=== PATIENT | male | born 2000 | race Caucasian/White ===

== ENCOUNTER → 2019-06-26 14:39 | Outpatient (BNVA) | payer SELFPAY | PROVIDERS: Visit Provider Specialist | DX: G43.011 Migraine without aura, intractable, with status migrainosus (principal); R56.9 Unspecified convulsions; Z87.891 Personal history of nicotine dependence | CPT/HCPCS: 99214 ==

== ENCOUNTER → 2019-07-01 07:51 | Outpatient (BNVA) | payer SELFPAY | PROVIDERS: Visit Provider Specialist | DX: G40.909 Epilepsy, unspecified, not intractable, without status epilepticus (principal) | CPT/HCPCS: 36415; 95816 ==

== ENCOUNTER → 2019-10-07 13:05 | Outpatient (BNVA) | payer SELFPAY | PROVIDERS: PCP Family Medicine; Visit Provider Specialist | DX: G43.711 Chronic migraine without aura, intractable, with status migrainosus (principal); K76.0 Fatty (change of) liver, not elsewhere classified; Z87.891 Personal history of nicotine dependence | CPT/HCPCS: 99213 ==

== ENCOUNTER 2019-12-23 19:19 | Emergency (ER) | payer SELFPAY ==
[2019-12-23 19:28] VITALS: BP 131/76; PULSE 79; RESP 18; TEMP 37.1; O2SAT 98; BMI 30.7
[2019-12-23 19:59] LABS: Basophils % 0.6 %; Eosinophils # 0.1 10^3/uL (0.0-0.8); Eosinophils % 1.2 %; Hematocrit 46.3 % (42.0-52.0); Hemoglobin 15.1 g/dL (11.7-16.6); Lymphocytes # 2.3 10^3/uL (0.8-4.8); Mean Corpuscular HGB Conc 32.6 g/dL (30.0-36.0); Mean Corpuscular Hemoglobin 29.8 pg (28.0-34.0); Mean Corpuscular Volume 91.5 fL (80-94); Mean Platelet Volume 12.3 fL (7.4-10.4); Monocytes # 0.3 10^3/uL (0.2-0.9); Monocytes % 5.1 %; Neutrophils # 3.74 10^3/uL (1.8-7.7); Neutrophils % 57.8 %; Nucleated Red Blood Cells % 0 %; Platelet Count 186 10^3/cmm (130-400); Red Blood Count 5.06 10^6/uL (4.1-5.3); Red Cell Distribution Width 12.6 % (12.1-15.1); White Blood Count 6.5 10^3/uL (4.0-10.0)
[2019-12-23 20:05] LABS: INR 0.93 (0.8-1.2)
[2019-12-23 20:29] LABS: Alanine Aminotransferase 52 U/L (0-41); Albumin Level 5.1 g/dL (3.5-5.2); Alkaline Phosphatase 62 IU/L (40-130); Anion Gap 15.7 (5-19); Aspartate Amino Transferase 33 U/L (0-40); Blood Urea Nitrogen 10 mg/dL (6-20); Calcium 9.7 mg/dL (8.5-10.5); Carbon Dioxide 29 mmol/L (22-29); Chloride 102 mmol/L (98-107); Globulin 2.2 g/dL (1.3-4.6); Glomerular Filtration Rate 142.4 mL/min (90-130); Glucose 116 mg/dL (65-115); Lipase 25 U/L (13-60); Osmolality Calculated 293 mOsm/kg (285-295); Potassium 3.7 mmol/L (3.5-5.1); Sodium 143 mmol/L (136-145); Total Bilirubin 0.5 mg/dL (0.15-1.2); Total Protein 7.3 g/dL (6.6-8.7)
[2019-12-23 21:29] VITALS: BP 132/73; PULSE 80; RESP 16
--- NOTE | 2019-12-23 21:45 | W.ED.NAVMDI ---
HPI - Nausea/Vomiting/Diarrhea General: Chief complaint: Abdominal Pain Stated complaint: vomitted blood Time Seen by Provider: 12/23/19 21:19 Source: patient Mode of arrival: ambulatory Limitations: no limitations History of Present Illness: HPI Narrative: Patient is a 19-year-old male presents to ED today with complaints of one episode of vomiting that happened around 3 AM this morning. Patient tells me he had ate dinner around 9 PM and around 3 in the morning he woke up and felt nauseous and had one episode of vomiting. The significant other in the room seems overly concerned stating the vomit had tissue and blood in it . She shows me pictures of the vomit on her phone. Patient states after the episode of vomiting he felt fine and went back to bed. Patient states when he awoke he again felt normal and has continued to feel normal throughout the day. Significant other apparently contacted a medical hotline and was concerned it could be related to his fatty liver and a sign of liver disease so was told to come to the emergency department. Patient is not having any abdominal pain currently. MD elicited complaint: nausea and vomiting Onset (ago): hour(s) Associated nausea: Yes Associated abdominal pain: No Location of pain: None Exacerbating factors: none Relieving factors: none Associated symtoms: Reports no associated symptoms and nausea; Denies chest pain Review of Systems Const: Denies: fever(s) or chills Card: Denies: chest pain Resp: Denies: dyspnea GI: Reports: nausea and vomiting (x 1); Denies: abdominal pain, diarrhea, change in bowel habits, pain on defecation, change in stool character, hematochezia or melena Musc: Denies: back pain [facility] ED PFSH: Medical History (Updated 12/23/19 @ 21:53 by MELLISA Bermeo) Problems related to lack of adequate sleep Social anxiety disorder Family History Other CAD (coronary artery disease) Diabetes Hypertension Denies family history of Stroke Social History Smoking and tobacco status: former smoker Quit status (tobacco): has quit using tobacco Year quit tobacco: 2017 Alcohol intake: current Alcohol intake frequency: holidays/special occasions only Current gender identity: Male Physical Exam Const: COMMON NORMALS: no acute distress, average body habitus, patient oriented x3, no limitations, healthy appearing, alert and well nourished GI: COMMON NORMALS: Normal to inspection, nondistended, normoactive bowel sounds present, Soft to palpation, non-tender, No hepatosplenomegaly present and no masses PALPATION: Yes Soft to palpation and Yes No hepatosplenomegaly present Neuro: COMMON NORMALS: patient oriented x3 SENSORIUM/ORIENTATION: Yes alert Course Vital Signs: Vital signs: Vital Signs Temperature 98.7 F 12/23/19 19:28 Pulse Rate 80 12/23/19 21:29 Respiratory Rate 16 12/23/19 21:29 Blood Pressure 132/73 12/23/19 21:29 Pulse Oximetry 98 12/23/19 19:28 MDM - Nausea/Vomiting/Diarrhea MDM Narrative: Medical decision making narrative: Patient has absolutely no abdominal tenderness at this time. There is nothing to suggest that patient has any form of liver disease apart from his history of a fatty liver. Patient has not had any further episodes of vomiting other than the one episode at 3 AM this morning. His labs are non-concerning at this time. Patient is stable to be discharged and follow-up with primary care. Lab Data: Labs: Lab Results 12/23/19 12/23/19 12/23/19 Range/Units 19:48 19:48 19:48 WBC 6.5 (4.0-10.0) 10^3/ uL RBC 5.06 (4.1-5.3) 10^6/u L Hgb 15.1 (11.7-16.6) g/dL Hct 46.3 (42.0-52.0) % MCV 91.5 (80-94) fL MCH 29.8 (28.0-34.0) pg MCHC 32.6 (30.0-36.0) g/dL RDW 12.6 (12.1-15.1) % Plt Count 186 (130-400) 10^3/c mm MPV 12.3 H (7.4-10.4) fL Neut % (Auto) 57.8 % Lymph % (Auto) 35.0 % [place]ory % (Auto) 5.1 % Eos % (Auto) 1.2 % Baso % (Auto) 0.6 % Neut # (Auto) 3.74 (1.8-7.7) 10^3/u L Lymph # (Auto) 2.3 (0.8-4.8) 10^3/u L [place] # (Auto) 0.3 (0.2-0.9) 10^3/u L Eos # (Auto) 0.1 (0.0-0.8) 10^3/u L Baso # (Auto) 0.0 (0.0-0.1) 10^3/u L Nucleated RBC % (a uto) 0 % Nucleated RBCs # 0.0 /100WBC PT 12.70 (10.5-13.3) SECO NDS INR 0.93 (0.8-1.2) Sodium 143 (136-145) mmol/L Potassium 3.7 (3.5-5.1) mmol/L Chloride 102 (98-107) mmol/L Carbon Dioxide 29 (22-29) mmol/L Anion Gap 15.7 (5-19) BUN 10 (6-20) mg/dL Creatinine 0.7 (0.7-1.2) mg/dL GFR Calculation 142.4 H (90-130) mL/min Glucose 116 H (65-115) mg/dL Calculated Osmolal ity 293 (285-295) mOsm/k g Calcium 9.7 (8.5-10.5) mg/dL Total Bilirubin 0.5 (0.15-1.2) mg/dL AST 33 (0-40) U/L ALT 52 H (0-41) U/L Alkaline Phosphata se 62 (40-130) IU/L Total Protein 7.3 (6.6-8.7) g/dL Albumin 5.1 (3.5-5.2) g/dL Globulin 2.2 (1.3-4.6) g/dL Lipase 25 (13-60) U/L Discharge Plan Discharge Patient Disposition: Home Clinical Impression: Vomiting in adult Condition: Stable Prescriptions: No Action trazodone 50 mg tablet 50 mg PO .qhs 30 Days Qty: 30 RF: 3 milk thistle 500 mg capsule 500 mg PO QDAY RF: 0 Effexor XR 150 mg capsule,extended release 24hr 150 mg PO DAILY RF: 0 Discharge Orders: Discharge Order (Routine); Ordered 12/23/19 Ordered By: Carline Bergeron Patient Instructions: Acute Nausea and Vomiting (ED), Vomiting - Adult Coding Level of Care Code ED Drier Take Off Tender for June Zarco
[2019-12-23 22:23] VITALS: BP 139/84; PULSE 88; RESP 16; TEMP 36.6
--- NOTE | 2020-01-01 09:00 | DCPLANNER ---
manager of distribution had message to speak with patient about getting a primary care physician. manager of distribution called patient unable to speak with patient at this time a message was left for patient.
== END 2019-12-23 22:25 | disposition home or self-care (01) ==
PROVIDERS: Emergency Medicine; Emergency Provider Physician Assistant
DX: R11.10 Vomiting, unspecified (principal); Z87.891 Personal history of nicotine dependence
CPT/HCPCS: 12345; 36415; 80053; 83690; 85025; 85610; 99281; 99282

== ENCOUNTER → 2020-02-19 13:04 | Outpatient (BNVA) | payer SELFPAY | PROVIDERS: Visit Provider Specialist | DX: G40.909 Epilepsy, unspecified, not intractable, without status epilepticus (principal); G43.711 Chronic migraine without aura, intractable, with status migrainosus; K76.0 Fatty (change of) liver, not elsewhere classified; F40.10 Social phobia, unspecified | CPT/HCPCS: 99213 ==

== ENCOUNTER → 2020-06-30 11:40 | Outpatient (BNVA) | payer SELFPAY | PROVIDERS: PCP Nurse Practitioner Family; Visit Provider Specialist | DX: G43.711 Chronic migraine without aura, intractable, with status migrainosus (principal); F40.10 Social phobia, unspecified; Z87.891 Personal history of nicotine dependence | CPT/HCPCS: 99213 ==

== ENCOUNTER 2021-07-02 18:53 | Emergency (ER) | payer OTHER, SELFPAY ==
--- NOTE | 2021-07-02 18:58 | XRR_ITS ---
PROCEDURE INFORMATION: Exam: XR Right Knee Exam date and time: 07/02/2021 6:58 PM Age: 21 years old Clinical indication: Injury or trauma; Fall; Sprain or strain; Patella or knee; Right; Injury date: 07/02/2021 TECHNIQUE: Imaging protocol: XR Right knee. Views: 3 views. COMPARISON: No relevant prior studies available. FINDINGS: Bones/joints: Normal. Soft tissues: Normal. XR/XR knee RT 3V* [id number] IMPRESSION: No acute findings.
[2021-07-02 19:40] VITALS: BP 123/70; PULSE 75; RESP 16; TEMP 37.2; O2SAT 98; BMI 33.0
--- NOTE | 2021-07-02 19:57 | W.ED.EXTPRO ---
HPI - Extremity Problem General: Chief complaint: Extremity Injury, Lower Stated complaint: R knee injury Time Seen by Provider: 07/02/21 19:54 History of Present Illness: Patient is a 21-year-old male comes to the ED with right knee injury. Injury occurred while patient was at work. Patient says earlier today he was carrying a mattress and stepped into a ditch. During that he twisted his right knee. He now has pain and swelling in right knee. He can partially bear weight on the right leg but has to limp. Associated symptoms: Deny chest pain, fever(s) or rash Review of Systems Const: Denies: fever(s), chills or fatigue Eyes: Denies: change in vision or eye discomfort ENMT: Denies: throat pain, odynophagia, nasal discharge or nasal congestion Card: Denies: chest pain, palpitations, edema, swelling of feet/ankles, dyspnea on exertion or orthopnea Resp: Denies: dyspnea, productive cough or non-productive cough GI: Denies: abdominal pain, nausea, vomiting, diarrhea, constipation or hematochezia : Denies: flank pain, difficulty urinating, dysuria or hematuria Musc: Reports: extremity pain (right knee) and extremity swelling (right knee); Denies: neck pain or back pain Skin/Breast: Denies: rash or new lesions Neuro: Denies: headache(s), numbness in extremities or weakness in extremities PFSH ED PFSH: Medical History Problems related to lack of adequate sleep Social anxiety disorder Family History Other CAD (coronary artery disease) Diabetes Hypertension Denies family history of Stroke Social History Smoking and tobacco status: never smoked Quit status (tobacco): has quit using tobacco Year quit tobacco: 2017 Alcohol intake: current Alcohol intake frequency: holidays/special occasions only Current gender identity: Male Physical Exam Const: COMMON NORMALS: no acute distress, patient oriented x3, healthy appearing and alert GENERAL APPEARANCE: cooperative and comfortable HENMT: COMMON NORMALS: normocephalic HEAD & SCALP: normocephalic MOUTH: Normal oral and palatal mucosa present THROAT: posterior oropharynx normal and uvula midline Eye: COMMON NORMALS: Equal, round and reactive pupils present GENERAL EYE: appearance normal, both eyes and all related structures PUPIL: Yes Equal, round and reactive pupils present Neck/C-Spine: COMMON NORMALS: supple GENERAL: Yes normal visual inspection Resp: COMMON NORMALS: normal respiratory effort, No retractions, No use of accessory muscles and clear to auscultation bilaterally AUSCULTATION: clear to auscultation bilaterally Cardio: COMMON NORMALS: regular rate, regular rhythm, S1 normal heart sound present, S2 normal heart sound present, No gallops present (Cardio), No clicks present (Cardio), No murmurs present (Cardio) and Peripheral pulses 2+ throughout RATE: regular rate RHYTHM: regular rhythm HEART SOUNDS: S1 normal heart sound present and S2 normal heart sound present PERIPHERAL PULSES: Peripheral pulses 2+ throughout GI: COMMON NORMALS: Normal to inspection, nondistended, normoactive bowel sounds present, Soft to palpation, non-tender and no masses PALPATION: Yes Soft to palpation : COMMON NORMALS: Yes no CVA tenderness BLADDER/KIDNEY EXAM: Yes no CVA tenderness Back/Pelvis: COMMON NORMALS: no CVA tenderness Extremity: RIGHT LOWER EXTREMITY: Yes knee joint Right knee: Yes inspection (Mild swelling noted.), Yes palpation (Tenderness to palpation of superior, medial,lateral aspect of knee.), Yes ROM (Pain with range of motion.), Yes neurovascular exam (Intact) and Yes other (Patient limps with minimal weightbearing on right leg.) Neuro: COMMON NORMALS: patient oriented x3 and moves all extremities SENSORIUM/ORIENTATION: Yes alert Skin: GENERAL SKIN EXAM: dry skin Course Vital Signs: Vital signs: Vital Signs Temperature 99 F 07/02/21 19:40 Pulse Rate 68 07/02/21 20:21 Respiratory Rate 16 07/02/21 20:21 Blood Pressure 131/88 07/02/21 20:21 Pulse Oximetry 98 07/02/21 20:21 MDM - Extremity (Nontraumatic) Medical Decision Making Patient is a 21-year-old male comes to the ED with right knee injury. Vital stable. Exam shows a healthy 21-year-old male with some right knee swelling and tenderness to palpation. Neurovascular intact. X-ray of right knee showed no acute fractures or findings. Patient was put in a knee immobilizer and discharged home. He was told to follow-up with his PCP within the next week for reevaluation. Return to ED precautions given. Patient understood and agreed with plan. Lab Data Radiology Impressions Knee X-Ray 07/02/21 18:58 IMPRESSION: No acute findings. Discharge Plan Discharge Patient Disposition: Home Clinical Impression: Injury of knee, right Qualifiers: Encounter type: initial encounter Qualified Code(s): S89.91XA - Unspecified injury of right lower leg, initial encounter Condition: Stable Prescriptions: No Action meloxicam 15 mg tablet 15 mg PO DAILY Qty: 30 6RF venlafaxine [Effexor XR] 150 mg capsule,extended release 24hr 150 mg PO DAILY Qty: 90 3RF Rx Instructions: MUST HAVE APPOINTMENT FOR FUTURE REFILLS trazodone 50 mg tablet 25 mg PO .qhs 0RF buspirone 10 mg tablet 10 mg PO BID 30 Days Qty: 60 3RF Discharge Orders: Discharge ED (Routine); Ordered 07/02/21 Ordered By: Dean Cadet Referrals: Hua Louie MD [Primary Care Provider] - Discharge Diet: Regular Discharge Activity: Limit activity as instructed and Use walker/crutches as instructed Patient Instructions: Swollen Knee Joint (ED), Knee Pain (ED), Knee Immobilizer (ED) Activity Restrictions/Additional Instructions: Follow-up with medical provider within the next 5 days for reevaluation and to be cleared for work. Wear knee immobilizer and limit weightbearing for the next couple days. Use your cane at home to help with ambulation. Rest ice and elevate right knee. Take your previously prescribed meloxicam for pain. Return to the ER or your medical provider if condition worsens. Please read and understand discharge instructions. Thank you for choosing [facility] for your healthcare needs today. Please realize this is an emergency room and that we are providing you with a medical screening exam and this may not be complete and all inclusive of all the testing and or work up that you may need to determine your ailment or severity of your illness. It is very important that you follow up as instructed or that you return to the Emergency Department should you have concerns or if your condition changes or worsens in any way. Stand Alone Forms: Work/School Release Coding Level of Care Code ED Makeup Instructor for June Fwkarlo Exam Comprehensive
[2021-07-02 20:18] VITALS: PULSE 75
[2021-07-02 20:21] VITALS: BP 131/88; PULSE 68; RESP 16; O2SAT 98
--- NOTE | 2021-07-02 20:23 | PC.NURSE ---
Knee immobilizer provided at this time.
== END 2021-07-02 20:23 | disposition home or self-care (01) ==
PROVIDERS: Emergency Provider Physician Assistant; PCP Internal Medicine
DX: S89.91XA Unspecified injury of right lower leg, initial encounter (principal); Z87.891 Personal history of nicotine dependence; X50.1XXA Overexertion from prolonged static or awkward postures, initial encounter
CPT/HCPCS: 73562; 99283

== ENCOUNTER 2022-01-26 14:05 | Outpatient (CLI) | payer BC, SELFPAY ==
[2022-01-26 15:01] LABS: Basophils # 0.1 10^3/uL (0.0-0.1); Eosinophils # 0.1 10^3/uL (0.0-0.8); Eosinophils % 2.4 %; Hematocrit 47.7 % (42.0-52.0); Hemoglobin 16.2 g/dL (11.7-16.6); Lymphocytes # 2.2 10^3/uL (0.8-4.8); Lymphocytes % 37.6 %; Mean Corpuscular Hemoglobin 30.1 pg (28.0-34.0); Mean Corpuscular Volume 88.7 fl (80-94); Mean Platelet Volume 11.7 fL (7.4-10.4); Monocytes # 0.5 10^3/uL (0.2-0.9); Monocytes % 8.9 %; Neutrophils # 2.85 10^3/uL (1.8-7.7); Neutrophils % 49.9 %; Nucleated Red Blood Cells % 0 %; Platelet Count 223 10^3/cmm (130-400); Red Blood Count 5.38 10^6/uL (4.1-5.3); Red Cell Distribution Width 12.5 % (12.1-15.1); White Blood Count 5.7 10^3/uL (4.0-10.0)
[2022-01-26 15:06] LABS: Erythrocyte Sedimentation Rate 1 mm/hr (0-10)
[2022-01-26 15:31] LABS: Thyroid Stimulating Hormone 1.45 uIU/mL (0.27-4.20)
[2022-01-27 12:57] LABS: Cyclic Citrullinated Peptide <16 UNITS
== END 2022-01-26 14:06 | disposition home or self-care (01) ==
PROVIDERS: PCP Internal Medicine; Visit Provider Internal Medicine
DX: M13.0 Polyarthritis, unspecified (principal)
CPT/HCPCS: 84443; 85025; 85651; 86140; 86200; 86431

== ENCOUNTER → 2022-08-12 10:55 | Outpatient (BNVA) | payer OTHER, SELFPAY | PROVIDERS: PCP Family Medicine; Visit Provider Nurse Practitioner | DX: Z79.899 Other long term (current) drug therapy (principal) | CPT/HCPCS: 80061; 83036 ==

== ENCOUNTER → 2023-03-07 10:23 | Outpatient (BNVA) | payer MEDICAID, SELFPAY | PROVIDERS: PCP Family Medicine; Visit Provider Internal Medicine Rheumatology | DX: Z79.899 Other long term (current) drug therapy (principal); M19.90 Unspecified osteoarthritis, unspecified site; Z11.1 Encounter for screening for respiratory tuberculosis | CPT/HCPCS: 36415; 73130; 73562; 73630; 80076; 82565; 83520; 85025; 85651; 86140; 86480; 86704; 86803; 86812; 87340 ==

== ENCOUNTER 2023-05-09 08:58 | Outpatient (CLI) | payer MEDICAID, SELFPAY ==
--- NOTE | 2023-05-09 09:15 | US_ITS ---
WS: [id number] RIGHT UPPER QUADRANT ULTRASOUND HISTORY: R79.89 - Other specified abnormal findings of blood chemi... COMPARISON: 02/14/2019 Liver: 13.4 cm in length. Normal size liver with mild hepatic steatosis. There are focal areas of spa ring and hepatic steatosis. Portal Vein: Normal hepatopetal flow with monophasic waveform. Gallbladder: Normally distended gallbladder with no stones or wall thickening. CBD: 0.3 cm Pancreas: Completely obscured. Right kidney: 13.1 cm in length. Normal size and echogenicity. No hydronephrosis or mass. Aorta and IVC: Unremarkable abdominal aorta and IVC. No ascites. IMPRESSION: 1. Normal size liver with areas of hepatic steatosis and fatty sparing. 2. Negative gallbladder.
== END 2023-05-09 08:59 | disposition home or self-care (01) ==
LOC: RAD 08:58
PROVIDERS: PCP Family Medicine; Visit Provider Internal Medicine Rheumatology
DX: R79.89 Other specified abnormal findings of blood chemistry (principal)
CPT/HCPCS: 76705

== ENCOUNTER → 2023-08-15 15:58 | Outpatient (BNVA) | payer MEDICAID, SELFPAY | PROVIDERS: PCP Family Medicine; Visit Provider Internal Medicine Rheumatology | DX: Z79.899 Other long term (current) drug therapy (principal); M06.041 Rheumatoid arthritis without rheumatoid factor, right hand; M06.042 Rheumatoid arthritis without rheumatoid factor, left hand; Z71.85 Encounter for immunization safety counseling | CPT/HCPCS: 36415; 80076; 82565; 85025; 86140 ==

== ENCOUNTER → 2024-01-22 14:05 | Outpatient (BNVA) | payer MEDICAID, SELFPAY | PROVIDERS: PCP Family Medicine; Visit Provider Internal Medicine Rheumatology | DX: M06.041 Rheumatoid arthritis without rheumatoid factor, right hand (principal); M06.042 Rheumatoid arthritis without rheumatoid factor, left hand; Z71.85 Encounter for immunization safety counseling | CPT/HCPCS: 80076; 82565; 85025; 85651; 86140 ==

== ENCOUNTER 2025-02-11 03:37 | Emergency (ER) | payer SELFPAY ==
[2025-02-11 03:38] VITALS: BP 128/61; PULSE 81; RESP 17; TEMP 36.9; O2SAT 96; BMI 34.4
--- NOTE | 2025-02-11 03:45 | ED_ITS ---
HPI - General Adult General: Chief complaint: Neuro Symptoms/Deficit Stated complaint: Left Side of Face Wont Move Time Seen by Provider: 02/11/25 03:38 History of Present Illness: 25-year-old man who presents emergency r oom with left facial weakness. He says someone noticed it while he was at work at [employer]. He has weakness of his eyebrow, eyelid, nasal area and mouth. No slurred speech. No altered mental status. No focal motor deficits otherwise. No known fevers. No ear pain. Related Data Previous Rx's ?Medication ?Instructions ?Recorded tizanidine 2 mg tablet 6 mg (3 x 2 mg) PO DAILY PRN 03/24/23 muscle spasticity #90 tabs mirtazapine 15 mg tablet See Rx Instructions .Route 1 07/09/22 .COMPLEX #30 tabs albuterol sulfate 90 mcg/actuation 1 inh inhalation QI D PRN shortness 05/16/23 aerosol inhaler of breath #6.7 grams omeprazole 40 mg capsule,delayed See Rx Instructions P O DAILY #30 05/16/23 release caps duloxetine 60 mg capsule,delayed See Rx Instructions . Route 06/29/23 release .COMPLEX #30 caps duloxetine 30 mg capsule,delayed 30 mg PO DAILY #30 ca ps 11/16/23 release (Cymbalta) adalimumab 40 mg/0.8 mL 40 mg (0.8 mL) SUBCUT Q14D # 2 ea 03/04/24 subcutaneous pen kit (Humira Pen) prednisone 20 mg tablet 60 mg (3 x 20 mg) PO DAILY # 20 tabs 02/11/25 valacyclovir 1 gram tablet 1,000 mg PO Q12H 10 days #2 0 tabs 02/11/25 white petrolatum-mineral oil 83 1 applic ophthalmic (e ye) Q2H PRN 02/11/25 %-15 % eye ointment (Artificial dry eye(s) #3.5 grams Eye Lubricant) Allergies Allergy/AdvReac Type Severity Reaction Status Date / Time horse dander Allergy Severe coughing Verified 01/22/24 13:25 grass pollen Allergy difficulty Verified 03/01/24 09:33 breathing Review of Systems Narrative: Constitutional symptoms: Negative except as documented in HPI. Skin symptoms: Negative except as documented in HPI. Eye symptoms: Negative except as documented in HPI. ENMT symptoms: Negative except as documented in HPI. Respiratory symptoms: Negative except as documented in HPI. Cardiovascular symptoms: Negative except as documented in HPI. Gastrointestinal symptoms: Negative except as documented in HPI. Genitourinary symptoms: Negative except as documented in HPI. Musculoskeletal symptoms: Negative except as documented in HPI. Neurologic symptoms: Negative except as documented in HPI. Psychiatric symptoms: Negative except as documented in HPI. Endocrine symptoms: Negative except as documented in HPI. PFS ED PFSH: Medical History (Updated 02/11/25 @ 03:46 by Sommer Reyez MD) Seronegative rheumatoid arthritis of both hands Achilles tendinitis of both lower extremities Immunization counseling High risk medication use Inflammatory arthritis Moderate episode of recurrent major depressive disorder Lipoma History of seizure Asthma childhood. Cannabis use disorder, mild, in early remission, abuse Insomnia Problems related to lack of adequate sleep Social anxiety disorder Surgical History Status post excision of lipoma History of shoulder surgery History of tonsillectomy and adenoidectomy History of Achilles tendon repair bilateral--extension as a child Family History Other CAD (coronary artery disease) Cancer Chronic kidney disease (CKD) Diabetes Family history of premature coronary artery disease Hyperlipidemia Hypertension Psoriatic arthritis Psychiatric illness Denies family history of Rheumatoid arthritis Lupus Clotting disorder Dementia Anesthesia complication Bleeding disorder Lung disease Stroke Social History Smoking and tobacco/nicotine status: never used tobacco/nicotine Quit status (tobacco/nicotine): has quit using Year quit tobacco: 2017 Alcohol intake: never Substance/Drug Use: current Substance/Drug use frequency: daily Lives independently: Yes Marital status: Single Number of children: 0 Current occupational status: unemployed Current occupation: looking Current gender identity: Male Special sara needs: No Agree to transfusion: Yes Physical Exam Narrative: EXAM NARRATIVE: General: Alert, no acute distress. Skin: Warm, dry. Head: Normocephalic, atraumatic. Neck: Supple, trachea midline. Eye: Extraocular movements are intact. Ears, nose, mouth and throat: mucosa moist. Cardiovascular: Regular, Normal peripheral perfusion. Respiratory: Lungs are clear to auscultation, respirations are non-labored, breath sounds are equal, Symmetrical chest wall expansion. Gastrointestinal: Soft, Nontender, Non distended Musculoskeletal: Normal ROM, no deformity. Neurological: Alert and oriented, no visual deficits. He has weakness of his left eyebrow, left eyelid, left cheek and facial area and left mouth. No slurred speech. No altered mental status. Psychiatric: Cooperative, appropriate mood & affect. Course Vital Signs: Vital signs: Vital Signs Temperature 98.5 F 02/11/25 03:38 Pulse Rate 81 02/11/25 03:38 Respiratory Rate 17 02/11/25 03:38 Blood Pressure 128/61 02/11/25 03:38 Pulse Oximetry 96 02/11/25 03:38 Oxygen Delivery Me thod Room Air 02/11/25 03:38 MDM - General Adult Medical Decision Making Medical decision making: Differential diagnosis for patient with complaint of facial droop: bells palsy vs stroke. including but not limited to and based on the above HPI, review of systems and physical exam: involves forehead and eyelid, so almost certainly not a stroke Orders placed to evaluate differential diagnosis based on the above differential, HPI and physical exam Very clear Davis's palsy. CT head not warranted at this point. Starting treatment here in the emergency room tonight. Discussed with the patient use of an eye patch if his eye does not close while he sleeping and artificial tears. Assessment and plan: Davis's palsy ?First dose valacyclovir and prednisone in the emergency room - Discharged home - Discussed plan with patient. Answered any questions. - Evaluation and treatment of this problem were appropriate in the emergency setting. All radiology interpretation(s) finalized by discharge Discharge Plan Discharge Patient Disposition: Home Clinical Impression: Facial paralysis/Sacul palsy Condition: Stable Prescriptions: New valacyclovir 1 gram tablet 1,000 mg PO Q12H 10 Days Qty: 20 0RF prednisone 20 mg tablet 60 mg PO DAILY Qty: 20 0RF Rx Instructions: 3 tabs (60 mg) x 3 days. 2 tabs (40 mg) x 3 days. 1 tab (20 mg) x 3 days. 1/2 tab (10 mg) x 4 days Artificial Eye Lubricant 83-15 % ointment 1 applic ophthalmic (eye) Q2H PRN (Reason: dry eye(s)) Qty: 3.5 0RF No Action omeprazole 40 mg capsule,delayed release(DR/EC) See Rx Instructions PO DAILY Qty: 30 3RF Rx Instructions: take 1 capsule in AM 30 minutes before breakfast orally daily; albuterol sulfate 90 mcg/actuation HFA aerosol inhaler 1 inh inhalation QID PRN (Reason: shortness of breath) Qty: 6.7 2RF tizanidine 2 mg tablet 6 mg PO DAILY PRN (Reason: muscle spasticity) Qty: 90 3RF mirtazapine 15 mg tablet See Rx Instructions .ROUTE .COMPLEX Qty: 30 1RF Dose Instruction: TAKE ONE TABLET BY MOUTH at bedtime Rx Instructions: TAKE ONE TABLET BY MOUTH at bedtime duloxetine 60 mg capsule,delayed release(DR/EC) See Rx Instructions .ROUTE .COMPLEX Qty: 30 1RF Dose Instruction: TAKE ONE CAPSULE BY MOUTH DAILY Rx Instructions: TAKE ONE CAPSULE BY MOUTH DAILY duloxetine [Cymbalta] 30 mg capsule,delayed release(DR/EC) 30 mg PO DAILY Qty: 30 1RF Humira Pen 40 mg/0.8 mL pen injector kit 40 mg SUBCUT Q14D Qty: 2 5RF Discharge Orders: Discharge ED (Routine); Ordered 02/11/25 Ordered By: Sommer Reyez Referrals: Ang Higuera MD [Primary Care Provider, Family Practice] Discharge Diet: Usual diet Discharge Activity: Increase activity as tolerated Patient Instructions: Davis Palsy (ED), Opioid Safety, Pain Management, Patient Portal & Francois Instructions Activity Restrictions/Additional Instructions: Thank you for choosing [facility] for your healthcare needs today. You have been screened and evaluated and felt safe for discharge. Health conditions do change or evolve sometimes and as such it is important that you follow up with your Primary Doctor to be re checked, 3-5 days is a general good time frame for follow up. You are always welcome to return to the ED for re assessment if your symptoms are worsening or you have new concerns Print Language: Danish Coding Level of Care Code ED Reimbursement Counselor for June Zarco
[2025-02-11 04:14] VITALS: BP 123/63; PULSE 80; O2SAT 98
== END 2025-02-11 04:15 | disposition home or self-care (01) ==
PROVIDERS: Emergency Provider Emergency Medicine; PCP Family Medicine
DX: G51.0 Bell's palsy (principal)
CPT/HCPCS: 99283; J7512; J9999